=== PATIENT | male | born 1955 | race Caucasian/White ===

== ENCOUNTER 2023-06-23 15:25 | Emergency (ER) | payer MEDICARE, MEDICAID, SELFPAY ==
[2023-06-23 15:26] VITALS: BP 177/71; PULSE 84; RESP 14; TEMP 37.4; O2SAT 100; BMI 34.0
--- NOTE | 2023-06-23 15:30 | ED.RN ---
Pt was being checked in from squad to ED and being asked a line of questioning aka triage intervention. When being asked standard line of questioning i.e., suicidal risk, pmh, etc. Pt became angered, yelled at the RN and stated he was done answering questions. Rn explained that we have to ask basic questions in order to treat the patient.
--- NOTE | 2023-06-23 15:42 | EKG12_ITS ---
Test Reason : GENERAL Blood Pressure : / mmHG Vent. Rate : 078 BPM Atrial Rate : 078 BPM P-R Int : 160 ms QRS Dur : 080 ms QT Int : 368 ms P-R-T Axes : 017 010 027 degrees QTc Int : 419 ms Normal sinus rhythm Normal ECG Confirmed by DONOVAN TAYLOR, PANCHITO ([id number]), health editor HENRY ESPINOZA ([id number]) on 06/29/2023 10:09:42 AM Referred By: Confirmed By:SHIRIN MAN MD
--- NOTE | 2023-06-23 15:42 | RAD_ITS ---
INDICATION: chest pain EXAMINATION/TECHNIQUE: X-RAY - XR Chest 1 View COMPARISON: FINDINGS: LINES/DEVICES: None. LUNGS: No consolidation, edema or effusion. No pneumothorax. MEDIASTINUM AND CARDIOVASCULAR STRUCTURES: Cardiac silhouette not enlarged. Central airways and mediastinal contour are unremarkable. BONES AND SOFT TISSUES: Degenerative vertebral changes. RAD/Chest 1 View (Portable) IMPRESSION: No radiographic evidence of acute cardiopulmonary disease. Electronically Signed: Henrry Burnham DO at 16:32 EST ,
--- NOTE | 2023-06-23 15:43 | EX.ED.DYSGE1 ---
HPI History of Present Illness Chief Complaint: General Illness Informant: patient Onset/Context/Timing Onset: Days Context: Gradual Onset Timing: Continuous Current Severity: Mild Narrative Narrative: 68-year-old male history of insulin-dependent diabetes currently is at [facility] for the last 4 days he has had a cough, subjective fever and body aches. He is also had intermittent chest pain today. Because of stabbing. Diffusely throughout different areas of his chest. No history of cardiac disease. He quit smoking and drinking 35 years ago. He also had some nausea today but no vomiting or diarrhea. No dysuria. He has not been recently in the hospital he is never had a DVT or PE. No hemoptysis. No leg pain or swelling. Prior similar symptoms: Yes Recent Illness/Hospitalization: No [facility] Medical History (Updated 06/23/23 @ 16:[address] Derick Field MD) Asthma Diabetes Stomach cancer Allergy/AdvReac Type Severity Reaction Status Date / Time No Known Allergies Allergy Verified 06/23/23 15:29 Social History Smoking Status: Former smoker ROS ROS ED ROS Narrative Cough, subjective fever and chills, nausea, atypical nonexertional chest pain today. Review of Systems ROS Unobtainable: Denies due to encephalopathy Constitutional Constitutional ED: Reports chills, fever(s) and subjective Eyes Eyes: Denies blurry vision ENT ENT ED: Denies ear pain or rhinorrhea Cardiovascular Cardiovascular: Reports chest pain Respiratory/Chest Respiratory/Chest: Reports cough; Denies dyspnea Gastrointestinal Gastrointestinal: Denies abdominal pain, constipation, diarrhea or melena Genitourinary Genitourinary ED: Denies dysuria, hematuria or urinary frequency Musculoskeletal Musculoskeletal: Denies arthralgias, back pain, myalgias or neck pain Integumentary Denies Abrasions Neurologic Neurologic: Denies headache(s) or paresthesias Psychiatric Psychiatric: Denies anxiety or depression Endocrine Endocrinology: Denies cold intolerance Hematologic/Lymphatic Hematologic/Lymphatic: Reports none Allergic/Immunologic Allergic/Immunologic ED: Denies mouth swelling, tongue swelling or urticaria EXAM Physical Exam Narrative Exam Narrative: 68-year-old male lying in bed. No one else present in room. Vital signs stable his pulse ox 100% on room air. Temperature nine 9.3. He does not look septic or toxic. He is in no distress. HEENT exam unremarkable. Neck nontender no lymphadenopathy. No meningismus. Lungs clear to auscultation bilaterally. Heart regular rhythm rate about 80 no murmur. Chest wall nontender. Abdomen soft nondistended normal bowel sounds no peritoneal signs. No significant tenderness. Moving all 4 extremities. Nontender no edema. Normal policy service coordinator strength. Normal dorsi and plantar flexion. Back nontender. Awake alert no focal motor deficits. Answering questions following commands. Const Vital Signs: 06/23/23 15:26 06/23/23 15:56 06/23/23 15:57 Temperature 99.3 F H Temperature Source Oral Pulse Rate 84 Respiratory Rate 14 Respiratory Effort Normal Non-Labored Respiratory Pattern Normal Blood Pressure 177/71 H Blood Pressure Mean 106 Pulse Ox 100 Oxygen Delivery Method Room Air Room Air Positive well nourished and well developed; Negative for cachectic, contractures or unkempt General Appearance ED: well developed and NAD; Negative for unkempt, cachectic, contractures, cyanotic, diaphoretic or pallor Nutritional Appearance: Negative for cachectic HEENT Reports moist mucous membranes; Denies dry mucous membranes Negative for trauma or tenderness Mouth ED: No dry mucous membranes Mouth: No dry mucous membranes Eyes EOMs intact bilaterally General Eye ED: Negative for pale conjunctiva, scleral icterus or other Neck no lymphadenopathy, supple and no JVD General: Negative for tenderness Lymph Lymphatic: Negative for other Chest Wall inspection of chest normal and palpation of chest normal Chest: Negative for other Resp normal respiratory effort and clear to auscultation bilaterally Effort and Inspection: Negative for retractions Auscultation: Negative for rales, rhonchi or wheezes Cardio regular rate, regular rhythm, S1 normal heart sound, S2 normal heart sound and no murmurs Palpation: Negative for palpable S3 or palpable S4 Rate: Negative for bradycardia or tachycardic Rhythm: Negative for abnormal rhythm GI normal to inspection, nondistended, normoactive bowel sounds, non-tender, non-distended and no masses Inspection: Negative for abdominal distention Auscultation: normoactive bowel sounds Palpation: soft; Negative for tender, guarding or rebound tenderness present Back/Spine no CVA tenderness General Back: Negative for CVA tenderness Cervical Spine: Negative for cervical spine tenderness Thoracic Spine / Upper Back: Negative for thoracic spinal tenderness or paraspinal muscle tenderness Lumbar Spine / Lower Back: Negative for lumbar spinal tenderness Extremity normal to inspection General Extremety ED: Negative for edema or tenderness General Extremity: Negative for edema Neuro oriented x3 and CN's II-XII intact bilaterally Sensorium / Orientation: alert; Negative for orientation impaired, lethargic or stuporous Motor Exam: strength 5/5 throughout; Negative for general weakness or strength abnormal Psych mental status grossly normal Appearance: Negative for unkempt Attitude: No agitated Mood & Affect: Negative for depressed, anxious or tearful Skin no rashes or lesions noted and no wounds General Skin Exam: Negative for jaundice or pallor Lesions: No lesion noted Rashes: No rashes noted Trauma: Negative for abrasion Wounds: Negative for wounds noted MDM MDM MDM Narrative Medical decision making narrative: 68-year-old male currently at the [facility] care home most likely is a viral syndrome. COVID flu and RSV being obtained. Rule out pneumonia. Also some atypical nonexertional chest pain which we will workup with a chest pain workup. He does have a history of smoking in the past but has not smoked for 30 years and is reportedly diabetic. No history of DVT or PE risk factors. Repeat exam in 1 and evaluate the patient at 4:50. He was being completely disrespectful to the nursing staff. He was complaining. He wanted pain meds. I went over all his test results with him. Explained to him, he had influenza this would not require narcotic pain meds. I offered him Tylenol and Motrin he said he was not interested in that. I explained to him that is how I would treat myself or a family member with similar symptoms. Patient will be discharged back to the [facility]. History & Record Review Discussion w/independent historian: Patient Additional record(s) reviewed:: No prior records Lab Data Attestation: I reviewed the patient's lab results. Lab results narrative: CBC shows a white count of 3.8. H&H 13 and 38. Platelets 138. Electrolytes show sodium 134. Gap 4. Normal BUN of 16 creatinine 0.93. Patient is diabetic glucose is 323. Troponin is normal at 21. Chest x-ray chronic changes. No pneumonia or acute processes. Viral studies flu a positive. Labs: Laboratory Results - last 24 hr 06/23/23 15:30 WBC 3.8 L RBC 4.35 L Hgb 13.2 Hct 38.6 L MCV 88.7 MCH 30.3 MCHC 34.2 RDW Std Deviation 42.9 RDW Coeff of Babs 13.1 Plt Count 138 L MPV 10.0 Immature Gran % (Auto) 0.500 Neut % (Auto) 71.7 H Lymph % (Auto) 9.4 L [place] % (Auto) 17.8 H Eos % (Auto) 0.3 Baso % (Auto) 0.3 Absolute Neuts (auto) 2.7 Absolute Lymphs (auto) 0.36 L Nucleated RBC % 0 Sodium 134 L Potassium 3.7 Chloride 104 Carbon Dioxide 26.0 Anion Gap 4 L BUN 16 Creatinine 0.93 Estim Creat Clear Calc 93.07 Est GFR (MDRD) Af Amer 104 Est GFR (MDRD) Non-Af 86 BUN/Creatinine Ratio 17.1 Glucose 323 H Calcium 8.6 Troponin I High Sens 21 Radiography Chest X-Ray - ED: 1 View, Read by ED Physician, Read by Radiologist, Heart, Lungs, Mediastinum, Bony Structures, No Acute Disease and Chronic Changes Diagnostic Testing: Clinical Impression(s) from Imaging Studies Chest X-Ray 06/23/23 15:42 IMPRESSION: No radiographic evidence of acute cardiopulmonary disease. Electronically Signed: Henrry Burnham DO at 16:32 EST Reading Location ID and State: [facility] / [place] Tel [phone], Service support , Chest x-ray, portable, single view interpreted both by myself and the radiologist shows no acute abnormality. Rhythm Strip Rhythm Strip: Sinus Rhythm Rate: 78 Ectopy: None EKG Initial EKG: Attestation: I personally reviewed and interpreted this EKG as follows: Interpretation: Sinus Rhythm and No Acute Injury Pattern Comments: Normal sinus rhythm rate of 78 no acute signs of OK or ischemia. No dysrhythmia. Discharge Plan Triage Chief Complaint: General Illness ED Provider: Derick Field Dx/Rx/DC Orders Clinical Impression: Influenza A Instructions: ED Influenza (Adult) Primary Care Provider: Care Physician,No Primary Referrals: Amber Olivas [Non-Staff] - As Needed Care Physician,No Primary [Primary Care Provider] - Activity Restrictions/Additional Instructions: Plenty of fluids and rest. You have influenza. It should pass in the next several days. Motrin for fever and body aches and Tylenol. Follow-up with a local primary care physician if not improving or return if worse. We are happy to take care of you but when you are here you need to be respectful to staff. Disposition Disposition: Home, Self Care
--- NOTE | 2023-06-23 15:47 | NURSING ---
NO OLD EKGS
[2023-06-23] MEDS: Ondansetron 4 MG/2 ML Vial IV (15:56)
[2023-06-23] MEDS: 0.9% Normal Saline (1000mL) 1,000 ML 1000 ML IV (15:56)
[2023-06-23 16:19] LABS: Absolute Lymphocyte Count 0.36 X10^3/uL (0.83-4.51); Absolute Neutrophil Count 2.7 X10^3/uL (2.0-7.7); Basophil# 0.01 X10^3/uL; Basophil% 0.3 % (0-1); Eosinophil# 0.01 X10^3/uL; Eosinophils% 0.3 % (0-5); Hematocrit 38.6 % (40-54); Hemoglobin 13.2 g/dL (13.0-16.5); Lymphocyte # 0.36 X10^3/ul (0.83-4.51); Lymphocyte % 9.4 % (19-41); Mean Corp Hgb Conc 34.2 g/dL (32-36); Mean Corpuscular Hgb 30.3 pg (27.0-32.0); Mean Corpuscular Volume 88.7 fL (80-94); Monocyte# 0.68 X10^3/uL; Monocyte% 17.8 % (0-10); NRBC Flagged by Analyzer 0 % (0-5); Neutrophil # 2.73 X10^3/uL (2.7-7.7); Neutrophil % 71.7 % (47-70); POSITIVE DIFFERENTIAL YES; Platelet Count 138 K/mm3 (150-450); RBC Distribution Width CV 13.1 % (11.6-14.6); RBC Distribution Width SD 42.9 fl (35.1-43.9); Red Blood Count 4.35 M/mm3 (4.6-6.2); White Blood Count 3.8 K/mm3 (4.4-11.0)
--- NOTE | 2023-06-23 16:30 | ED.RN ---
Pt called out c/o pain. This RN came in to assess pt's pain. Pt was asked, where is your pain pt stated all over. Pt was asked if the pain was new or old. Pt became frustrated with the line of questions and began to yell at this RN stating that he's already answered all these questions. This RN explained that we have to ask these questions in order to treat the pain. Pt demanded that this RN give him his nitro from his bag. This RN asked if the pain was chest pain. Pt again said it was all over, continued yelling obscenities and told this RN to get out. pari mutual ticket checker came in and explained that she had asked him about getting him pain medication when she was in the room with him previously and gave him his urinal. At that time she explained to him that he wouldn't answer her so no pain management was requested. Pt became so irrate at that time that security and police came to the room to calm the pt. Dr. Field notified of pt's pain upon leaving pt's room.
[2023-06-23 16:44] LABS: Anion Gap 4 (5-15); BUN 16 mg/dL (7-18); BUN/Creat Ratio 17.1 RATIO (10-20); Calcium,Total 8.6 mg/dL (8.5-10.1); Chloride 104 mmol/L (98-107); Creatinine, Serum 0.93 mg/dL (0.70-1.30); EST Glomerular Filtration Rate 86 mL/min (>60); Est Glom Filt Rate - Afr Amer 104 mL/min (>60); Estimated Creatinine Clearance 93.07 ml/min; Glucose 323 mg/dL (74-106); Potassium 3.7 mmol/L (3.5-5.1); Sodium Level 134 mmol/L (136-145); Troponin-I HS 21 pg/mL (3.0-78.0)
--- NOTE | 2023-06-23 16:50 | ED.RN ---
Pt began screaming from his room that he's in so much pain, found in his room out of bed getting dressed, stable on his feet. Pt yelled at this RN for not covering him with a blanket or empyting his urinal and again not getting him something for pain. This RN informed him that the MD was informed of his pain and we were awaiting orders. Also this RN stated that pt wasn't covered with a blanket as he was capable of doing that for himself as he's getting dressed and ambulating with ease. Pt became so loud that other staff and police arrived to room. At that time pt stated that this RN is stupid and untrained and to get her away from me. At that time Dr. Field entered the room and asked pt to calm down and that it was unacceptable for the pt to treat staff the way he was. Emir Licea attempted to address the pt's concerns when the pt became belligerent with him as well. This RN exited the room to diffuse involvement with the situation.
--- NOTE | 2023-06-23 17:00 | ED.RN ---
Pt escorted off property by PD and security d/t his behavior. D/C papers were provided for the pt and he was informed of his flu positive status.
--- NOTE | 2023-06-23 17:10 | ED.RN ---
D informed staff pt was being arrested for having outstanding warrants.
--- NOTE | 2023-06-23 17:10 | ED.RN ---
1630-PT CALLED OUT ASKING FOR URINAL. THIS RN WENT IN TO ASSIST. PT STATES MOVE THE BED. MY BACK IS KILLING ME . THIS RN STATES EXCUSE ME? TO WHICH HE REPLIES PLEASE . PT IS SHOWN HOW TO MOVE HIS BED WITH THE CONTROLS. PT WAS GIVEN A URINAL. PT STATES HE IS IN PAIN ALL OVER. THIS RN ASKS IF HE WOULD LIKE MEDICATED TO HELP HIS PAIN SO I COULD ASK THE DOCTOR FOR MEDS. PT REFUSES TO ANSWER THIS RN. THE RN LEAVES AND ASKS THE PT TO PLACE CALL LIGHT ON WHEN HE IS DONE SO WE CAN REMOVE THE URINAL. 170- PT IS YELLING AT PRIMARY RN HAKEEM. PT IS CALLING HAKEEM UNTRAINED AND STUPID AND HE WANTS HER OUT. DR. HARDING ENTERS ROOM. HAKEEM LEAVES THE ROOM WHILE THIS RN STAYS. DR. HARDING THOROUGHLY GOES OVER RESULTS WITH PATIENT AND GIVES HIM VERBAL DISCHARGE INSTRUCTIONS. IV IS REMOVED FROM PTS ARM AND PT AMBULATES OUT OF DEPARTMENT. IGNACIO LANDERS IS AT BEDSIDE AND ESCORTS PT OUT TO WAITING AREA
--- NOTE | 2023-06-23 18:35 | ED.RN ---
1526- edit- Patient very upset that this nurse is asking questions. He became very angry about asking questions to get patient checked in. He said that he already told the squad he wasn't talking. This nurse explained to him that he needed to answer my questions so we could get him in the computer and the Dr could see him.
== END 2023-06-23 17:25 | disposition home or self-care (01) ==
PROVIDERS: Emergency Provider Emergency Medicine; Visit Provider Emergency Medicine
DX: J10.1 Influenza due to other identified influenza virus with other respiratory manifestations (principal); E11.9 Type 2 diabetes mellitus without complications; Z87.891 Personal history of nicotine dependence; Z85.028 Personal history of other malignant neoplasm of stomach
CPT/HCPCS: 71045; 80048; 84484; 85025; 87631; 93005; 99284; J7030; J2405